=== PATIENT | female | born 1945 | race Caucasian/White ===

== ENCOUNTER 2021-12-28 00:38 | Emergency (ER) | payer MEDICARE, OTHER, SELFPAY ==
[2021-12-28 01:06] VITALS: BP 149/70; PULSE 69; RESP 18; TEMP 36.6; O2SAT 97
[2021-12-28 03:00] VITALS: PULSE 62; RESP 16; O2SAT 100
[2021-12-28 03:04] VITALS: BP 145/64; PULSE 64; RESP 18; O2SAT 100
--- NOTE | 2021-12-28 03:10 | ED.GENADULT ---
HPI - General Adult General Chief complaint: Recheck/Abnormal Lab/Rx Stated complaint: HTN, shaking Time Seen by Provider: 12/28/21 02:55 History of Present Illness HPI narrative: 76-year-old female presented to the emergency department for evaluation of elevated blood pressure. Patient does take lisinopril and clonidine for her blood pressure. Patient states last week she was camping and did have an episode where her blood pressure was running low. Since then patient did decrease her lisinopril. Patient states that tonight she felt that her blood pressure was elevated and noticed it was 198 systolic. Patient did take her lisinopril and clonidine and her blood pressure is improved upon arrival to the ED. Patient denies any complaints at this time. Related Data Allergies Allergy/AdvReac Type Severity Reaction Status Date / Time codeine Allergy Unknown Loss of Verified 07/03/17 20:58 Consciousness piroxicam Allergy Unknown Rash Verified 07/03/17 20:58 ticagrelor Allergy Unknown Other Verified 07/03/17 20:58 Review of Systems Review of Systems: CONSTITUTIONAL: Denies fever, chills, or sweats. EYES: Denies visual changes, redness, or discharge. ENT: Denies rhinorrhea, congestion, sore throat, or otalgia. CARDIOVASCULAR: Denies chest pain, palpitations, or edema. RESPIRATORY: Denies cough or dyspnea. GASTROINTESTINAL: Denies abdominal pain, nausea, vomiting, or diarrhea. GENITOURINARY: Denies dysuria or hematuria. SKIN: Denies rash or itching. MUSCULOSKELETAL: Denies back pain, joint pain, or myalgia. NEUROLOGIC: Denies headache, numbness, or weakness. Exam Narrative: APPEARANCE: Well appearing, no pain, no distress, well-nourished. HEAD: normocephalic, atraumatic. EYES: PERRLA/EOMI, conjunctivae clear. NOSE: Normal no drainage EARS:TMS clear with good light reflex. THROAT: Pharynx clear, no exudate. NECK: Supple. No adenopathy, no masses. RESPIRATORY: Airway patent, respirations nonlabored. Clear to auscultation bilaterally, no rales, rhonchi, wheezing. CARDIOVASCULAR: Regular rate and rhythm without murmurs rubs or gallops. ABDOMINAL: Soft, nontender, nondistended, normal bowel sounds MUSCULOSKELETAL: Moves all extremities. Strength/ROM intact, No edema, No calf tenderness. NEURO: Alert. Cranial nerves II through XII intact. Grossly intact SKIN: Warm, dry. Normal Color Course Course Emergency Course: Patient's blood pressure did improve while emergency room. Patient did take her lisinopril and clonidine at home. Patient was advised to have close follow-up with her primary care physician. Vital Signs Vital signs: Vital Signs Temperature 97.8 F 12/28/21 01:06 Pulse Rate 69 12/28/21 01:06 Respiratory Rate 18 12/28/21 01:06 Blood Pressure 149/70 H 12/28/21 01:06 Pulse Oximetry 97 12/28/21 01:06 Oxygen Delivery Room Air 12/28/21 01:06 Temperature 97.8 F 12/28/21 01:06 Pulse Rate 59 L 12/28/21 03:16 Respiratory Rate 18 12/28/21 03:16 Blood Pressure 108/59 L 12/28/21 03:16 Pulse Oximetry 97 12/28/21 03:16 Oxygen Delivery Room Air 12/28/21 01:06 Medical Decision Making Vital Signs Vital Signs: Vital Signs Temperature 97.8 F 12/28/21 01:06 Pulse Rate 69 12/28/21 01:06 Respiratory Rate 18 12/28/21 01:06 Blood Pressure 149/70 H 12/28/21 01:06 Pulse Oximetry 97 12/28/21 01:06 Oxygen Delivery Room Air 12/28/21 01:06 Temperature 97.8 F 12/28/21 01:06 Pulse Rate 59 L 12/28/21 03:16 Respiratory Rate 18 12/28/21 03:16 Blood Pressure 108/59 L 12/28/21 03:16 Pulse Oximetry 97 12/28/21 03:16 Oxygen Delivery Room Air 12/28/21 01:06 Discharge Plan Discharge Clinical Impression: Hypertension Patient Disposition: Home, Self-Care Condition: Stable Instructions: Antibiotic Form, Hypertension (ED) Additional Instructions: Have close follow-up with your physicians regarding your blood pressure medications. Follow-up/Ref
[2021-12-28 03:15] VITALS: PULSE 58; RESP 15; O2SAT 99
[2021-12-28 03:16] VITALS: BP 108/59; PULSE 59; RESP 18; O2SAT 97
--- NOTE | 2021-12-28 03:19 | PC.NURSE ---
Pt here c/o high bp today. took home clonidine. Denies other complaints. a/o x 4. skin pwd. resps even/nonlabored.
== END 2021-12-28 04:03 | disposition home or self-care (01) ==
PROVIDERS: Emergency Provider Emergency Medicine; PCP Family Medicine
DX: I10 Essential (primary) hypertension (principal)
CPT/HCPCS: 99283